=== PATIENT | female | born 1955 | race Caucasian/White ===

== ENCOUNTER → 2017-05-27 | Outpatient (CLI) | payer BC ==
--- NOTE | 2017-05-27 14:01 | REPMRS ---
Patient History The patient states she had a clinical breast exam in 05/2017. Patient is postmenopausal. Family history of breast cancer in mother at age 80. Benign lumpectomy of the left breast, 1977. Digital Woman Screen Mammo: May 27, 2017 - Exam #: [id number] Bilateral CC and MLO view(s) were taken. Technologist: Shanna England, Technologist Prior study comparison: May 26, 2016, digital woman screen mammo performed at [facility]. May 26, 2015, digital woman screen mammo performed at [facility]. April 18, 2014, digital woman screen mammo performed at [facility]. FINDINGS: The breast tissue is heterogeneously dense. This may lower the sensitivity of mammography. There is a moderate amount of heterogeneously dense fibroglandular tissue which is fairly symmetric. There is no interval development of dominant mass, architectural distortion, or clustered microcalcification typical of malignancy. There has been no change in the appearance of the mammogram from the prior studies. ASSESSMENT: BI-RADS/ACR category 1 mammogram. Negative. Recommendation Routine screening mammogram of both breasts in 1 year (for women over age 40). This mammogram was interpreted with the aid of an FDA-approved computer-aided dectection system. Electronically Signed By: Jose C Small MD 05/27/17 [id number]
== END ==
LOC: M WHC 11:07
PROVIDERS: ATTEND Nurse Practitioner Family
DX: Z12.31 Encounter for screening mammogram for malignant neoplasm of breast (principal); R92.8 Other abnormal and inconclusive findings on diagnostic imaging of breast; Z78.0 Asymptomatic menopausal state; Z80.3 Family history of malignant neoplasm of breast

== ENCOUNTER → 2017-07-27 | Outpatient (CLI) | payer BC ==
[2017-07-27 10:55] LABS: BASO % 0.4 % (0.0-1.0); EOS % 0.5 % (0.0-3.0); HEMATOCRIT 44.4 % (36.0-47.0); HEMOGLOBIN 14.5 g/dl (12.0-16.0); IMMATURE GRANULOCYTE % 0.3 % (0-0); LYMPH # 2.2 10^3/uL (1.5-4.5); LYMPH % 29.2 % (24.0-44.0); MEAN CORPUSCULAR HEMOGLOBIN 27.8 pg (27.0-33.0); MEAN CORPUSCULAR HGB CONC 32.7 g/dl (32.0-36.5); MEAN CORPUSCULAR VOLUME 85.2 fl (80.0-96.0); MONO # 0.5 10^3/uL (0.0-0.8); MONO % 6.9 % (0.0-5.0); NEUTROPHILS # 4.8 10^3/uL (1.8-7.7); NEUTROPHILS % 62.7 % (36.0-66.0); PLATELET COUNT, AUTOMATED 395 10^3/uL (150-450); RED BLOOD COUNT 5.21 10^6/uL (4.00-5.40); RED CELL DISTRIBUTION WIDTH 13.3 % (11.5-14.5); WHITE BLOOD COUNT 7.6 10^3/uL (4.0-10.0)
[2017-07-27 11:15] LABS: ERYTHROCYTE SEDIMENTATION RATE 3 mm/hr (0-30)
[2017-07-27 11:19] LABS: ESTIMATED AVERAGE GLUCOSE 131 MG/DL (60-110); HEMOGLOBIN A1c 6.2 %
[2017-07-27 11:46] LABS: RHEUMATOID FACTOR QUANT < 10.0 IU/ML (0-15.0); TOTAL PROTEIN 7.6 GM/DL (6.4-8.2)
[2017-07-27 11:49] LABS: FOLATE 14.2 NG/ML; VITAMIN B12 LEVEL 646 PG/ML
[2017-07-28 10:46] LABS: ALPHA-1-GLOBULIN % 4.1 % (2.9-4.9)
[2017-07-28 10:47] LABS: ALBUMIN 4.56 GM/DL (3.29-5.55); ALPHA-1-GLOBULINS 0.31 GM/DL (0.17-0.41); ALPHA-2-GLOBULINS 0.76 GM/DL (0.42-0.99); BETA-1-GLOBULINS 0.43 GM/DL (0.28-0.60); BETA-1-GLOBULINS % 5.7 % (4.7-7.2); BETA-2-GLOBULINS 0.37 GM/DL (0.19-0.55); BETA-2-GLOBULINS % 4.9 % (3.2-6.5); GAMMA GLOBULIN % 15.3 % (11.1-18.8); GAMMA GLOBULINS 1.16 GM/DL (0.65-1.58)
[2017-08-01 14:11] LABS: ANTI DOUBLE STRAND-DNA AB 1 IU/mL (0-9); ANTINUCLEAR ANTIBODIES DIRECT Negative (Negative); SJOGREN'S ANTI SS-A <0.2 AI (0.0-0.9); SJOGREN'S ANTI SS-B <0.2 AI (0.0-0.9); VITAMIN B1 LEVEL WHOLE BLOOD 125.9 nmol/L (66.5-200.0); VITAMIN B6,PYRIDOXAL PHOSPHATE 4.9 ug/L (2.0-32.8); VITAMIN E LEVEL 15.6 mg/L (6.5-21.5)
[2017-08-02 10:46] LABS: DRVV SCREEN 38.1 SEC
[2017-08-02 10:49] LABS: PTT LUPUS TYPE ANTICOAG SCREEN 0.9 (0-1.2)
== END ==
LOC: M LAB 10:16
DX: R41.3 Other amnesia (principal)
CPT/HCPCS: 82746

== ENCOUNTER → 2018-05-29 | Outpatient (CLI) | payer BC | LOC: M WHC 13:46 | DX: Z12.31 Encounter for screening mammogram for malignant neoplasm of breast (principal); Z92.89 Personal history of other medical treatment; Z80.3 Family history of malignant neoplasm of breast | CPT/HCPCS: 77067 ==

== ENCOUNTER → 2018-05-29 | Outpatient (REF) | payer BC ==
[2018-06-01 00:07] LABS: HPV HYBRID CAPTURE II Negative (Negative)
== END ==
LOC: M SFHCWAGY 14:01
DX: Z12.4 Encounter for screening for malignant neoplasm of cervix (principal)
CPT/HCPCS: G0123

== ENCOUNTER → 2019-07-02 | Outpatient (CLI) | payer BC ==
--- NOTE | 2019-07-02 15:14 | REPMRS ---
Patient History The patient states she had a clinical breast exam in June 2019.Family history of breast cancer at age 80 in mother. Benign lumpectomy of the left breast, 1977. Digital Woman Screen Mammo: July 02, 2019 - Exam #: [id number] Bilateral CC and MLO view(s) were taken. Technologist: Erin Duncan, Technologist Prior study comparison: May 29, 2018, bilateral digital woman screen mammo performed at [facility]. May 27, 2017, digital woman screen mammo performed at [facility]. May 26, 2016, digital woman screen mammo performed at [facility]. FINDINGS: The breast tissue is heterogeneously dense. This may lower the sensitivity of mammography. There is a moderate amount of heterogeneously dense fibroglandular tissue which is fairly symmetric. There is no interval development of dominant mass, architectural distortion, or grouped microcalcification typical of malignancy. There has been no change in the appearance of the mammogram from the prior studies. 3-D tomosynthesis shows no additional findings. Assessment: BI-RADS/ACR category 1 mammogram. Negative Mammogram. Recommendation Routine screening mammogram of both breasts in 1 year (for women over age 40). This patient's Lifetime Breast Cancer RIsk is estimated at 13.4 %. This mammogram was interpreted with the aid of an FDA-approved computer-aided dectection system. Electronically Signed By: Jose C Small MD 07/02/19 [id number]
== END ==
LOC: M WHC 13:26
PROVIDERS: ATTEND Nurse Practitioner Family
DX: Z12.31 Encounter for screening mammogram for malignant neoplasm of breast (principal)

== ENCOUNTER → 2020-07-03 | Outpatient (CLI) | payer BC, MEDICARE ==
--- NOTE | 2020-07-03 12:36 | REPMRS ---
Patient History The patient states she had a clinical breast exam in 06/2020. Patient is postmenopausal. Family history of breast cancer at age 80 in mother. Benign lumpectomy of the left breast, 1977. No Hormone Replacement Therapy Digital Woman Screen Mammo: July 03, 2020 - Exam #: [id number] Bilateral CC and MLO view(s) were taken. Technologist: Shanna England, Technologist Prior study comparison: July 02, 2019, bilateral digital woman screen mammo performed at [facility]. May 29, 2018, bilateral digital woman screen mammo performed at [facility]. May 27, 2017, digital woman screen mammo performed at [facility]. FINDINGS: The breast tissue is heterogeneously dense. This may lower the sensitivity of mammography. The Volpara volumetric breast density category is: C. There is a moderate amount of heterogeneously dense fibroglandular tissue which is fairly symmetric. There is no interval development of dominant mass, architectural distortion, or grouped microcalcification typical of malignancy. There has been no change in the appearance of the mammogram from the prior studies. 3-D tomosynthesis shows no additional findings. Assessment: BI-RADS/ACR category 1 mammogram. Negative Mammogram. Recommendation Routine screening mammogram of both breasts in 1 year (for women over age 40). This patient's [facility] Lifetime Breast Cancer RIsk is estimated at 12.8 %. This mammogram was interpreted with the aid of an FDA-approved computer-aided dectection system. Electronically Signed By: Jose C Small MD 07/03/20 [id number]
== END ==
LOC: M WHC 10:29
PROVIDERS: ATTEND Nurse Practitioner Family
DX: Z12.31 Encounter for screening mammogram for malignant neoplasm of breast (principal); Z80.3 Family history of malignant neoplasm of breast; Z86.018 Personal history of other benign neoplasm

== ENCOUNTER → 2022-10-05 | Outpatient (CLI) | payer MEDICARE | LOC: M WHC 14:57 | PROVIDERS: ATTEND Nurse Practitioner | DX: Z12.31 Encounter for screening mammogram for malignant neoplasm of breast (principal) ==